=== PATIENT | male | born 1985 ===

== ENCOUNTER 2018-01-24 20:13 | Emergency (ER) | payer MEDICAID ==
[~2018-01-24] VITALS: Ht 182.9 cm; Wt 58.0 kg
[2018-01-24 20:24] VITALS: BP 127/93
[2018-01-24] MEDS ORDERED: CEPH500C5 PO (20:50)
== END 2018-01-24 20:56 | disposition home or self-care (01) ==
LOC: ER 20:14
DX: S93.491A Sprain of other ligament of right ankle, initial encounter (principal); L03.115 Cellulitis of right lower limb; Z88.8 Allergy status to other drugs, medicaments and biological substances; X58.XXXA Exposure to other specified factors, initial encounter; Y93.89 Activity, other specified; Y92.099 Unspecified place in other non-institutional residence as the place of occurrence of the external cause; Y99.8 Other external cause status
CPT/HCPCS: 73610; 99284